=== PATIENT | female | born 1950 | race Two or more races ===

== ENCOUNTER 2021-02-15 04:55 | Day surgery (SDC) | payer OTHER ==
[~2021-02-15 04:55] MED LIST: APRESOLINE 10MG10 MG PO; CARTIA XT240 MG; D3 + K2 DOTS 11 EACH PO; HYDRALAZINE HCL10 MG; LISINOPRIL20 MG; PRILOSEC OTC20 MG PO; SINGULAIR 10MG10 MG PO; TORADOL10 MG PO; ZESTRIL10 M1 PO
== END 2021-02-15 12:05 | disposition home or self-care (01) ==
LOC: CIR.AMB 04:55
PROVIDERS: ATTEND Anesthesiology Pain Medicine
DX: H44.131 Sympathetic uveitis, right eye (principal); Z20.822 Contact with and (suspected) exposure to COVID-19